=== PATIENT | female | born 2000 | race Caucasian/White ===

== ENCOUNTER 2020-01-14 09:21 | Emergency (ER) | payer OTHER ==
[~2020-01-14] VITALS: Ht 162.6 cm; Wt 69.9 kg
[2020-01-14] MEDS ORDERED: PROZAC10 MG PO (09:50)
== END 2020-01-14 14:52 | disposition home or self-care (01) ==
LOC: ER 09:21
DX: R42 Dizziness and giddiness (principal); F06.4 Anxiety disorder due to known physiological condition